=== PATIENT | female | born 1995 | race African-American/Black ===

== ENCOUNTER 2018-10-07 11:18 | Emergency (ER) | payer OTHER ==
[~2018-10-07] VITALS: Ht 175.3 cm; Wt 74.4 kg
[2018-10-07] MEDS ORDERED: NOHOMEMEDICATIONS (11:32)
[2018-10-07] MEDS ORDERED: MOBIC15 MG PO (12:03)
[2018-10-07 12:25] VITALS: BP 119/74
== END 2018-10-07 12:26 | disposition home or self-care (01) ==
LOC: ER 11:18
DX: R10.2 Pelvic and perineal pain (principal)

== ENCOUNTER 2018-10-11 12:19 | Emergency (ER) | payer OTHER ==
[~2018-10-11] VITALS: Ht 175.3 cm; Wt 74.4 kg
[~2018-10-11 12:19] MED LIST: MOBIC15 MG PO; NOHOMEMEDICATIONS
[2018-10-11] MEDS ORDERED: NORCO 5-325 TA1 EACH PO (13:24)
[2018-10-11 13:54] VITALS: BP 116/75
[2018-10-11 13:54] LABS: URINE BILIRUBIN NEGATIVE (Negative); URINE BLOOD TRACE (Negative); URINE CLARITY CLEAR; URINE COLOR YELLOW; URINE GLUCOSE-RANDOM* NEGATIVE (Negative); URINE KETONES NEGATIVE (Negative); URINE LEUKOCYTES-REFLEX NEGATIVE (Negative); URINE NITRITE-REFLEX NEGATIVE (Negative); URINE PROTEIN (DIPSTICK) NEGATIVE (Negative); URINE SPECIFIC GRAVITY 1.015 (1.005-1.035); URINE UROBILINOGEN 0.2 E.U./dl (0.2-1.0)
== END 2018-10-11 13:55 | disposition home or self-care (01) ==
LOC: ER 12:19
PROVIDERS: Physician Assistant
DX: N76.0 Acute vaginitis (principal)